=== PATIENT | female | born 1985 | race Caucasian/White ===

== ENCOUNTER → 2017-12-20 | Outpatient (CLI) | payer OTHER ==
--- NOTE | 2017-12-20 14:38 | XR ---
EXAMINATION TYPE: XR shoulder complete LT DATE OF EXAM: 12/20/2017 CLINICAL HISTORY: pain COMPARISON: NONE TECHNIQUE: Three views of the left shoulder are obtained. FINDINGS: There is no acute fracture/dislocation evident. The acromioclavicular and glenohumeral heather int spaces appear within normal limits. The visualized ribs are intact and unremarkable. IMPRESSION: 1. There is no acute fracture or dislocation. ICD 10 NO FRACTURE, INITIAL EVALUATION
== END | disposition home or self-care (01) ==
LOC: RADXRMAIN 14:24
PROVIDERS: ATTEND Emergency Medicine
DX: S43.402A Unspecified sprain of left shoulder joint, initial encounter (principal)

== ENCOUNTER 2018-01-13 07:31 | Emergency (ER) | payer OTHER ==
[2018-01-13 07:37] VITALS: RESP 18
--- NOTE | 2018-01-13 07:58 | ED ---
General Adult HPI - General Chief complaint: Abdominal Pain Stated complaint: blood in stool Source: patient Mode of arrival: ambulatory - History of Present Illness Initial comments: Dictation was produced using [employer] dictation software. please excuse any grammatical, word or spelling errors. Chief Complaint: 32-year-old female with past medical history of abdominal symptoms presents with bloody diarrhea 2 days. History of Present Illness: Patient states that her symptoms started yesterday. She states that her symptoms began with acute nausea and vomiting that was bilious. States that her nausea slightly resolved. Yesterday she had episode of bright red blood per rectum. She states she's had multiple episodes. Today she had an episode of weakness, bloody diarrhea. Patient has had abdominal symptoms for the past year intermittently. She has been evaluated by her primary care doctor in the past. They did plan to have her be evaluated by a channeler outsole however she has not followed through with that yet. Patient denies any fever, chills or night sweats. She does complain of suprapubic pain. Denies being . No recent travel outside of the country. No exposure to fecal material. She did say she ate some lettuce hours as progress. She does not know if she is eaten Romayne lettuce recently. She is aware of the recent Romayne lettuce E coli outbreak. Denies any rectal pain. The ROS documented in this emergency department record has been reviewed and confirmed by me. Those systems with pertinent positive or negative responses have been documented in the HPI. All other systems are other negative and/or noncontributory. - Related Data Previous Rx's Medication Instructions Recorded Ciprofloxacin HCl [Cipro] 500 mg PO BID 5 Days #10 tab 01/13/18 Loperamide [Imodium] 2 mg PO Q4H PRN #12 capsule 01/13/18 Ondansetron Odt [Zofran Odt] 4 mg PO Q8HR PRN #12 tab 01/13/18 Allergies Allergy/AdvReac Type Severity Reaction Status Date / Time amoxicillin Allergy Rash/Hives Verified 01/13/18 08:07 amoxicillin trihydrate Allergy Rash/Hives Verified 01/13/18 08:07 [From Augmentin] morphine Allergy Swelling Verified 01/13/18 08:07 potassium clavulanate Allergy Rash/Hives Verified 01/13/18 08:07 [From Augmentin] sulfamethoxazole Allergy Rash/Hives Verified 01/13/18 08:07 [From Bactrim] trimethoprim [From Bactrim] Allergy Rash/Hives Verified 01/13/18 08:07 Review of Systems ROS Statement: Those systems with pertinent positive or pertinent negative responses have been documented in the HPI. ROS Other: All systems not noted in ROS Statement are negative. Past Medical History Past Medical History: No Reported History History of Any Multi-Drug Resistant Organisms: None Reported Past Surgical History: Section Additional Past Surgical History / Comment(s): D&C 2009, LEEP 2006 Past Anesthesia/Blood Transfusion Reactions: No Reported Reaction Past Psychological History: No Psychological Hx Reported Smoking Status: Never smoker Past Alcohol Use History: None Reported Past Drug Use History: None Reported - Past Family History Father Family Medical History: Congestive Heart Failure (CHF), Diabetes Mellitus General Exam - General Exam Comments Initial Comments: PHYSICAL EXAM: General Impression: Alert and oriented x3, not in acute distress HEENT: Normocephalic atraumatic, extra-ocular movements intact, pupils equal and reactive to light bilaterally, mucous membranes moist. Cardiovascular: Heart regular rate and rhythm, S1&S2 audible, no murmurs, rubs or gallops Chest: Lungs clear to auscultation bilaterally, no rhonchi, no wheeze, no rales Abdomen: Bowel sounds present, abdomen soft, non-tender, non-distended, no organomegaly Musculoskeletal: Pulses present and equal in all extremities, no peripheral edema Motor: Power 5/5 bilaterally, no focal deficits noted Neurological: CN II-XII grossly intact, no focal motor or sensory deficits noted Skin: Intact with no visualized rashes Psych: Normal affect and mood Rectal exam: No anal fissures, no external hemorrhoids. No palpable masses in the rectal vault. Course Vital Signs 01/13/18 07:33 Temperature 98.1 F Pulse Rate 97 Respiratory 18 Rate Blood Pressure 113/78 O2 Sat by Pulse 100 Oximetry Medical Decision Making - Medical Decision Making ED course: 32-year-old female presents with bloody diarrhea 1 day. Vital signs upon arrival are within acceptable limits.Laboratory evaluation obtained. Leukocytosis of 11.5 like he secondary to stress. Rest of labs unremarkable. Urinalysis negative. Beta hCG is negative. Discussed the patient there is symptoms may be secondary to bacterial gastroenteritis versus inflammatory bowel disease. Patient is given referral to GI doctor. Patient's symptoms may be secondary to bacterial gastroenteritis. I believe she would benefit from a trial of fluoroquinolones. Patient also given prescription for antidiarrhea and antinausea medication. - Lab Data Result diagrams: 01/13/18 07:59 01/13/18 07:59 Lab Results 01/13/18 01/13/18 01/13/18 Range/Units 07:59 07:59 08:07 WBC 11.5 H (3.8-10.6) k/uL RBC 4.32 (3.80-5.40) m/uL Hgb 14.0 (11.4-16.0) gm/dL Hct 41.1 (34.0-46.0) % MCV 95.3 (80.0-100.0) fL MCH 32.4 (25.0-35.0) pg MCHC 34.0 (31.0-37.0) g/dL RDW 12.3 (11.5-15.5) % Plt Count 190 (150-450) k/uL Neutrophils % 87 % Lymphocytes % 7 % Monocytes % 4 % Eosinophils % 1 % Basophils % 0 % Neutrophils # 10.0 H (1.3-7.7) k/uL Lymphocytes # 0.8 L (1.0-4.8) k/uL Monocytes # 0.5 (0-1.0) k/uL Eosinophils # 0.1 (0-0.7) k/uL Basophils # 0.0 (0-0.2) k/uL Sodium 140 (137-145) mmol/L Potassium 4.3 (3.5-5.1) mmol/L Chloride 107 (98-107) mmol/L Carbon Dioxide 25 (22-30) mmol/L Anion Gap 8 mmol/L BUN 16 (7-17) mg/dL Creatinine 0.68 (0.52-1.04) mg/dL Est GFR (CKD-EPI)AfAm >90 (>60 ml/min/1.73 sqM) Est GFR (CKD-EPI)NonAf >90 (>60 ml/min/1.73 sqM) Glucose 120 H (74-99) mg/dL Calcium 9.5 (8.4-10.2) mg/dL Total Bilirubin 0.6 (0.2-1.3) mg/dL AST 31 (14-36) U/L ALT 32 (9-52) U/L Alkaline Phosphatase 76 (38-126) U/L Total Protein 7.5 (6.3-8.2) g/dL Albumin 4.1 (3.5-5.0) g/dL Lipase 80 (23-300) U/L Urine Color Urine Appearance (Clear) Urine pH (5.0-8.0) Ur Specific [place] (1.001-1.035) Urine Protein (Negative) Urine Glucose (UA) (Negative) Urine Ketones (Negative) Urine Blood (Negative) Urine Nitrite (Negative) Urine Bilirubin (Negative) Urine Urobilinogen (<2.0) mg/dL Ur Leukocyte Esterase (Negative) Urine WBC (0-5) /hpf Ur Squamous Epith Cells (0-4) /hpf Urine Mucus (None) /hpf Urine HCG, Qual Not Detected (Not Detectd) 01/13/18 Range/Units 08:07 WBC (3.8-10.6) k/uL RBC (3.80-5.40) m/uL Hgb (11.4-16.0) gm/dL Hct (34.0-46.0) % MCV (80.0-100.0) fL MCH (25.0-35.0) pg MCHC (31.0-37.0) g/dL RDW (11.5-15.5) % Plt Count (150-450) k/uL Neutrophils % % Lymphocytes % % Monocytes % % Eosinophils % % Basophils % % Neutrophils # (1.3-7.7) k/uL Lymphocytes # (1.0-4.8) k/uL Monocytes # (0-1.0) k/uL Eosinophils # (0-0.7) k/uL Basophils # (0-0.2) k/uL Sodium (137-145) mmol/L Potassium (3.5-5.1) mmol/L Chloride (98-107) mmol/L Carbon Dioxide (22-30) mmol/L Anion Gap mmol/L BUN (7-17) mg/dL Creatinine (0.52-1.04) mg/dL Est GFR (CKD-EPI)AfAm (>60 ml/min/1.73 sqM) Est GFR (CKD-EPI)NonAf (>60 ml/min/1.73 sqM) Glucose (74-99) mg/dL Calcium (8.4-10.2) mg/dL Total Bilirubin (0.2-1.3) mg/dL AST (14-36) U/L ALT (9-52) U/L Alkaline Phosphatase (38-126) U/L Total Protein (6.3-8.2) g/dL Albumin (3.5-5.0) g/dL Lipase (23-300) U/L Urine Color Yellow Urine Appearance Cloudy H (Clear) Urine pH 5.0 (5.0-8.0) Ur Specific [place] 1.023 (1.001-1.035) Urine Protein Negative (Negative) Urine Glucose (UA) Negative (Negative) Urine Ketones Negative (Negative) Urine Blood Negative (Negative) Urine Nitrite Negative (Negative) Urine Bilirubin Negative (Negative) Urine Urobilinogen <2.0 (<2.0) mg/dL Ur Leukocyte Esterase Negative (Negative) Urine WBC 2 (0-5) /hpf Ur Squamous Epith Cells 4 (0-4) /hpf Urine Mucus Occasional H (None) /hpf Urine HCG, Qual (Not Detectd) Disposition Clinical Impression: Nausea & vomiting Disposition: HOME SELF-CARE Condition: Good Instructions: Acute Diarrhea (ED) Prescriptions: Ciprofloxacin HCl [Cipro] 500 mg PO BID 5 Days #10 tab Loperamide [Imodium] 2 mg PO Q4H PRN #12 capsule PRN Reason: Diarrhea Ondansetron Odt [Zofran Odt] 4 mg PO Q8HR PRN #12 tab PRN Reason: Nausea Is patient prescribed a controlled substance at d/c from ED?: No Referrals: Denzel Rascon DO [Primary Care Provider] - 1-2 days Leanne Noel MD [STAFF PHYSICIAN] - 1-2 days Time of Disposition: 09:13
[2018-01-13 08:12] LABS: Basophils % (A) 0 %; Eosinophils # (A) 0.1 k/uL (0-0.7); Eosinophils % (A) 1 %; HCT 41.1 % (34.0-46.0); Lymphocytes # (A) 0.8 k/uL (1.0-4.8); Lymphocytes % (A) 7 %; MCH 32.4 pg (25.0-35.0); MCV 95.3 fL (80.0-100.0); Mean Platelet Volume 7.6; Monocytes # (A) 0.5 k/uL (0-1.0); Monocytes % (A) 4 %; Neutrophils % (A) 87 %; Platelet Count 190 k/uL (150-450); RBC 4.32 m/uL (3.80-5.40); RDW 12.3 % (11.5-15.5); WBC 11.5 k/uL (3.8-10.6)
[2018-01-13 08:21] LABS: Appearance,Urine Cloudy (Clear); Bilirubin,Urine Negative (Negative); Blood,Urine Negative (Negative); Color,Urine Yellow; Glucose,Urine (UA) Negative (Negative); Ketones,Urine Negative (Negative); Leukocyte Esterase,Urine Negative (Negative); Mucus,Urine Occasional /hpf; Nitrite,Urine Negative (Negative); Protein,Urine Negative (Negative); Specific Gravity,Urine 1.023 (1.001-1.035); Squamous Epithelial Cell,Urine 4 /hpf (0-4); Urobilinogen,Urine <2.0 mg/dL (<2.0)
[2018-01-13 08:22] LABS: ALT 32 U/L (9-52); AST 31 U/L (14-36); Albumin 4.1 g/dL (3.5-5.0); Alkaline Phosphatase 76 U/L (38-126); Anion Gap 8 mmol/L; Blood Urea Nitrogen 16 mg/dL (7-17); Calcium 9.5 mg/dL (8.4-10.2); Carbon Dioxide 25 mmol/L (22-30); Chloride 107 mmol/L (98-107); Glucose 120 mg/dL (74-99); Lipase 80 U/L (23-300); Potassium 4.3 mmol/L (3.5-5.1); Sodium 140 mmol/L (137-145); Total Bilirubin 0.6 mg/dL (0.2-1.3); Total Protein 7.5 g/dL (6.3-8.2)
--- NOTE | 2018-01-13 08:43 | XR ---
EXAMINATION TYPE: XR abdomen 1V DATE OF EXAM: 01/13/2018 8:37 AM CLINICAL HISTORY: Abdominal pain with nausea vomiting and bloody diarrhea. TECHNIQUE: Two Upright KUB images of the abdomen are obtained. COMPARISON: Abdominal x-ray December 06, 2009. CT abdomen November 06, 2014.. FINDINGS: Scattered gas is seen in non-distended stomach epigastric region and small bowel loops and the pelvis. Gas and fecal material is seen in non-distended colon in the right lower quadrant. There is some paucity of bowel gas throughout the abdomen. There is no visceromegaly, pneumoperitoneum, or abnormal calcification appreciated. The lung bases are clear and the osseous structures are intact. IMPRESSION: Overall nonspecific but favor nonobstructive bowel gas pattern.
[2018-01-13 09:33] VITALS: BP 102/68; PULSE 71; TEMP 97
== END 2018-01-13 09:32 | disposition home or self-care (01) ==
LOC: EC 07:31
DX: R11.2 Nausea with vomiting, unspecified (principal); R19.7 Diarrhea, unspecified; R10.32 Left lower quadrant pain; D72.829 Elevated white blood cell count, unspecified; Z88.0 Allergy status to penicillin; Z88.5 Allergy status to narcotic agent; Z88.2 Allergy status to sulfonamides
CPT/HCPCS: 36415; 74018; 80053; 81001; 81025; 83690; 85025; 99284

== ENCOUNTER → 2018-08-23 | Outpatient (CLI) | payer OTHER ==
--- NOTE | 2018-08-23 21:36 | CT ---
EXAMINATION TYPE: CT brain wo con DATE OF EXAM: 08/23/2018 COMPARISON: None INDICATION: Migraines and light sensitively. DLP: 815.7 mGycm, Automated exposure control for dose reduction was used. CONTRAST: None CT of the brain is performed utilizing 3 mm thick sections through the posterior fossa and 3 mm thick sections through the remaining calvarium. Study is performed within 24 hours of arrival to the hosp [facility]. No abnormal hyperdensity is present to suggest an acute intracranial hemorrhage. No mass lesion is evident. No acute infarcts are evident. Ventricles and sulci are appropriate for the patient age. Paranasal sinuses and mastoid air cells within the [id number] are clear. IMPRESSIONS: 1. Normal CT Brain
== END | disposition home or self-care (01) ==
LOC: RADCTMAIN 16:57
PROVIDERS: ATTEND Family Medicine
DX: G43.009 Migraine without aura, not intractable, without status migrainosus (principal); H53.9 Unspecified visual disturbance
CPT/HCPCS: 70450

== ENCOUNTER → 2019-01-05 | Outpatient (CLI) | payer OTHER ==
--- NOTE | 2019-02-06 13:07 | EM ---
EVENT MONITOR Patient was monitored between the 05 of January and the January,. Rhythm strip revealed sinus mechanism with episode of sinus tachycardia. There was no episodes of atrial fibrillation or ventricular ectopic activity. No significant bradycardia or pauses were noted. Rare single PVCs were noted. HUNTER / FLORI: [id number] /
== END | disposition home or self-care (01) ==
LOC: RADECHMAIN 12:01
PROVIDERS: ATTEND Family Medicine
DX: R00.2 Palpitations (principal); R53.83 Other fatigue
CPT/HCPCS: 93270

== ENCOUNTER → 2020-03-13 | Outpatient (CLI) | payer OTHER ==
--- NOTE | 2020-03-13 12:30 | CT ---
EXAMINATION TYPE: CT angio abd aorta w/Runoff DATE OF EXAM: 03/13/2020 HISTORY: Bilateral lower extremity chronic peripheral insufficiency CT DLP: 686mGycm Automated Exposure Control for Dose Reduction was Utilized. CONTRAST: CTA scan of the pelvis through the lower extremities is performed with IV Contrast, patient injected with 100 mL of Isovue 370. Venogram protocol. Three-D reconstructed images created and a workstation and reviewed. COMPARISON: CT abdomen February 05, 2015 FINDINGS: Vascular: Arterial system unremarkable. No significant plaque or stenosis from the mid to distal abdo korin aorta through the trifurcation in the proximal to mid leg level in the bilateral lower extremit ies. Delayed phase images show satisfactory symmetric filling of the popliteal and superficial femora l veins bilaterally. There is good filling of the femoral veins in the bilateral groin region. There is good filling of the iliac veins in the pelvis up to the distal IVC. OTHER: Anteverted uterus. There is 1.7 cm rim enhancing right ovarian lesion axial image 54, suspect corpus luteal cyst from recent ovulation. Some facet arthropathy in the lower lumbar spine. IMPRESSION: Patent venous structures. No suspicious mass or adenopathy.
== END | disposition home or self-care (01) ==
LOC: RADCTMAIN 09:55
PROVIDERS: ATTEND Internal Medicine Cardiovascular Disease
DX: I87.2 Venous insufficiency (chronic) (peripheral) (principal)
CPT/HCPCS: 75635; Q9967

== ENCOUNTER → 2020-07-17 | Outpatient (CLI) | payer OTHER ==
--- NOTE | 2020-07-17 16:50 | US ---
EXAMINATION TYPE: US kidneys/renal and bladder DATE OF EXAM: 07/17/2020 COMPARISON: CT & US CT abdomen and pelvis 02/05/2015 ultrasound abdomen 01/07/2015 CLINICAL HISTORY: R10.823 Right lower quadrant rebound abdominal ten. Pt states gross hematuria with right flank pain on/off x many months EXAM MEASUREMENTS: Right Kidney: 9.7 x 4.6 x 4.2 cm Left Kidney: 10.5 x 5.5 x 5.0 cm Right Kidney: wnl, lower pole is not visualized due to overlying bowel gas. Left Kidney: wnl Bladder: wnl Bilateral Jets seen: Yes No hydronephrosis or shadowing renal calculi. Bilateral ureteral jets are seen. IMPRESSION: No renal calculi or hydronephrosis.. The lower pole of the right kidney is not visualized due to over lying bowel gas. Bilateral ureteral jets are seen.
== END | disposition home or self-care (01) ==
LOC: RADUSWWP 13:37
PROVIDERS: ATTEND Family Medicine
DX: R10.823 Right lower quadrant rebound abdominal tenderness (principal)
CPT/HCPCS: 76770

== ENCOUNTER → 2021-02-28 | Outpatient (CLI) | payer OTHER ==
[2021-02-28 12:39] LABS: Basophils % (A) 1 %; Eosinophils # (A) 0.1 k/uL (0-0.7); Eosinophils % (A) 2 %; HCT 44.3 % (34.0-46.0); HGB 14.1 gm/dL (11.4-16.0); Lymphocytes # (A) 1.7 k/uL (1.0-4.8); Lymphocytes % (A) 27 %; MCH 31.3 pg (25.0-35.0); MCHC 31.9 g/dL (31.0-37.0); MCV 98.4 fL (80.0-100.0); Mean Platelet Volume 8.5; Monocytes # (A) 0.4 k/uL (0-1.0); Monocytes % (A) 6 %; Neutrophils % (A) 63 %; Platelet Count 235 k/uL (150-450); RDW 12.6 % (11.5-15.5); WBC 6.3 k/uL (3.8-10.6)
[2021-02-28 12:41] LABS: African American GFR (CKD) >90 (>60 ml/min/1.73 sqM); Anion Gap 6 mmol/L; Blood Urea Nitrogen 18 mg/dL (7-17); Calcium 9.3 mg/dL (8.4-10.2); Carbon Dioxide 23 mmol/L (22-30); Chloride 110 mmol/L (98-107); Glucose 94 mg/dL (74-99); Non-African American GFR(CKD) >90 (>60 ml/min/1.73 sqM); Potassium 4.2 mmol/L (3.5-5.1); Sodium 139 mmol/L (137-145)
--- NOTE | 2021-02-28 16:20 | US ---
EXAMINATION TYPE: US venous doppler duplex LE LT DATE OF EXAM: 02/28/2021 10:49 AM COMPARISON: NONE CLINICAL HISTORY: I87.2. pain behind left knee, venous insufficiency. SIDE PERFORMED: Left TECHNIQUE: The lower extremity deep venous system is examined utilizing real time linear array sonog jovita with graded compression, doppler sonography and color-flow sonography. VESSELS IMAGED: Common Femoral Vein Deep Femoral Vein Greater Saphenous Vein * Femoral Vein Popliteal Vein Small Saphenous Vein * Proximal Calf Veins (* superficial vessels) Left Leg: Negative for DVT IMPRESSION: 1. Left lower extremity ultrasound negative for deep venous thrombosis.
== END | disposition home or self-care (01) ==
LOC: RADUSWWP 10:24
PROVIDERS: ATTEND Internal Medicine Cardiovascular Disease
DX: I87.2 Venous insufficiency (chronic) (peripheral) (principal)
CPT/HCPCS: 80048; 85025

== ENCOUNTER → 2021-08-27 | Outpatient (CLI) | payer OTHER | END | disposition home or self-care (01) | LOC: LABWHC1 14:33 | PROVIDERS: ATTEND Otolaryngology | DX: J30.89 Other allergic rhinitis (principal) | CPT/HCPCS: 36415; 86001 ==

== ENCOUNTER → 2021-12-31 | Outpatient (CLI) | payer OTHER ==
--- NOTE | 2022-01-01 07:54 | US ---
EXAMINATION TYPE: US kidneys/renal and bladder DATE OF EXAM: 12/31/2021 COMPARISON: NONE CLINICAL HISTORY: 36-year-old female R10.9 UNSPECIFIED ABDOMINAL PAIN. Right flank pain TECHNIQUE: Multiple sonographic images of the kidneys and bladder are obtained. FINDINGS: EXAM MEASUREMENTS: Right Kidney: 10.1 x 4.7 x 4.6 cm Left Kidney: 9.9 x 5.4 x 5.1 cm Right Kidney: No hydronephrosis or masses seen Left Kidney: No hydronephrosis or masses seen Bladder: wnl Bilateral Jets seen: Yes IMPRESSION: No hydronephrosis. No specific abnormality seen.
== END | disposition home or self-care (01) ==
LOC: RADUSWWP 16:09
PROVIDERS: ATTEND Urology
DX: R10.9 Unspecified abdominal pain (principal)
CPT/HCPCS: 76770

== ENCOUNTER → 2022-09-24 | Outpatient (CLI) | payer OTHER ==
--- NOTE | 2022-09-25 07:42 | XR ---
EXAMINATION TYPE: XR abdomen 2V DATE OF EXAM: 09/24/2022 COMPARISON: NONE HISTORY: Pain TECHNIQUE: Single supine KUB image of the abdomen is obtained FINDINGS: Small bowel demonstrates no evidence for dilatation or air fluid levels. Gas and fecal material is seen in non-distended colon. No convincing evidence for pneumoperitoneum. No unusual calcifications. The lung bases are clear. The osseous structures are intact. IMPRESSION: 1. Overall nonobstructive bowel gas pattern.
== END | disposition home or self-care (01) ==
LOC: RADXRYALE 16:37
PROVIDERS: ATTEND Physician Assistant
DX: K59.00 Constipation, unspecified (principal); R10.84 Generalized abdominal pain; R11.0 Nausea
CPT/HCPCS: 74019